=== PATIENT | female | born 1955 | race Caucasian/White ===

== ENCOUNTER 2018-06-20 16:19 | Inpatient (IN) | payer MEDICARE, OTHER ==
[~2018-06-20] VITALS: Ht 165.1 cm; Wt 67.6 kg
--- NOTE | 2018-06-20 16:25 | NUR ---
LEYLA FROM [facility] C/O NAUSEA AND VOMITING SINCE LAST NIGHT. PT IS CURRENTLY NAUSEOUS. NO VOMITTING PRESENT. PT IS ON MONITOR IN BED 11. WILL CONTINUE TO MONITOR.
--- NOTE | 2018-06-20 18:16 | NUR ---
RADIOLOGY AT BEDSIDE FOR XRAY
--- NOTE | 2018-06-20 18:40 | NUR ---
PHLEB AT BEDSIDE
[2018-06-20] MEDS ORDERED: KETOROLAC TROMETHAMINE INJ 30 MG/ML VIAL ONE (18:52)
[2018-06-20 18:53] LABS: BASOPHILS % (AUTO) 0.2 % (0.0-2.0); EOSINOPHILS % (AUTO) 0.1 % (0.0-6.0); HEMATOCRIT 34 % (33-45); HEMOGLOBIN 10.9 g/dL (11.5-14.8); LYMPHOCYTES # (AUTO) 0.6 /CMM (0.8-4.8); LYMPHOCYTES % (AUTO) 8.5 % (20.0-44.0); MEAN CORPUSCULAR HGB CONC 32 g/dl (31.0-36.0); MEAN CORPUSCULAR VOLUME 90 fL (82-100); MONOCYTES # (AUTO) 0.2 /CMM (0.1-1.30); MONOCYTES % (AUTO) 3.2 % (2.0-12.0); NEUTROPHILS # (AUTO) 6.6 /CMM (1.8-8.9); PLATELET COUNT (AUTO) 266 /CMM (150-450); RED BLOOD CELL COUNT(AUTO) 3.75 MIL/uL (4.0-5.2); WHITE BLOOD COUNT (AUTO) 7.6 K/uL (4.3-11.0)
[2018-06-20] MEDS ORDERED: KETOROLAC TROMETHAMINE INJ 30 MG/ML VIAL IV ONE (19:00)
[2018-06-20 19:02] LABS: CALCIUM, SERUM 8.6 mg/dL (8.5-10.1); CARBON DIOXIDE 23 mmol/L (21-32); CHLORIDE 101 mmol/L (98-107); CREATININE 0.8 mg/dL (0.6-1.3); GLUCOSE 116 mg/dL (74-106); POTASSIUM 3.5 mmol/L (3.5-5.1); SODIUM SERUM 138 mmol/L (136-145); UREA NITROGEN, BLOOD 13 mg/dL (7-18)
--- NOTE | 2018-06-20 19:10 | NUR ---
Pt came in for nausea, abd pain. A, O4 but dozes off to sleep in between conversation. States she is not in pain at this time.
[2018-06-20 19:14] LABS: ALANINE AMINOTRANSFERASE 20 U/L (12-78); ALBUMIN 3.3 g/dL (3.4-5.0); ALKALINE PHOSPHATASE 51 U/L (46-116); ASPARTATE AMINOTRANSFERASE 16 U/L (15-37); B-TYPE NATRIURETIC PEPTIDE 2570 PG/ML (0-125); BILIRUBIN,DIRECT 0.1 mg/dL (0.0-0.2); BILIRUBIN,TOTAL 0.4 mg/dL (0.2-1.0)
--- NOTE | 2018-06-20 19:14 | NUR ---
REPORT GIVEN TO CHU STEPHEN FOR CAREN
[2018-06-20] MEDS ORDERED: FUROSEMIDE 20 MG/2 ML VIAL IV ONE (20:00)
--- NOTE | 2018-06-20 20:10 | NUR ---
CALLED EPIC FOR THIS PATIENT
[2018-06-20] MEDS ORDERED: FUROSEMIDE 20 MG/2 ML VIAL ONE (20:18)
--- NOTE | 2018-06-20 20:58 | NUR ---
ADMIT TO ROOM 316-2 TELE
[2018-06-20] MEDS ORDERED: ALBUTEROL FS 2.5 MG/0.5 ML VIAL.NEB NEB PRN (22:00)
[2018-06-20] MEDS ORDERED: NITROGLYCERIN 0.4 MG/TAB BOTTLE SL PRN (22:00)
[2018-06-20] MEDS ORDERED: MORPHINE SULFATE INJ 2 MG/ML DISP.SYRIN IV PRN (22:00)
[2018-06-20] MEDS ORDERED: HYDROCODONE/APAP 5/325MG 1 EACH TABLET PO PRN (22:00)
[2018-06-20] MEDS ORDERED: MAG HYDROX/AL HYDROX/SIMETH 30 ML UDC PO PRN (22:00)
[2018-06-20] MEDS ORDERED: Z GUARD REMEDY 2 OZ OINT TP PRN (22:00)
[2018-06-20] MEDS ORDERED: ACETAMINOPHEN 325 MG TABLET PO PRN (22:00)
[2018-06-20] MEDS ORDERED: MAGNESIUM HYDROXIDE 30 ML UDC PO PRN (22:00)
[2018-06-20] MEDS ORDERED: IPRATROPIUM NEB FS 0.5 MG/2.5 ML AMPUL.NEB NEB PRN (22:00)
--- NOTE | 2018-06-20 22:35 | NUR ---
Pt resting in bed, c/o abd discomfort .
[2018-06-20 22:38] LABS: APPEARANCE,URINE CLEAR (CLEAR); BILIRUBIN,URINE NEGATIVE (NEGATIVE); BLOOD, URINE NEGATIVE Ery/uL (NEGATIVE); COLOR,URINE YELLOW (YELLOW); KETONES,URINE NEGATIVE (NEGATIVE); LEUKOCYTE ESTERASE ,URINE NEGATIVE (NEGATIVE); NITRITE, URINE NEGATIVE (NEGATIVE); PH,URINE 5.5 (5.0-8.0); PROTEIN,URINE NEGATIVE (NEGATIVE); UGLUCOSE NEGATIVE (NEGATIVE); UROBILINOGEN,URINE 0.2 EU/dL (0.2)
--- NOTE | 2018-06-20 22:44 | NUR ---
Pt will be admitted to [facility] 316. Report given to CHU Fisher.
[2018-06-20 23:00] VITALS: BP 129/67
--- NOTE | 2018-06-20 23:15 | NUR ---
STEAM ENGINEER ADMITTING NOTES RECEIVED PT FROM ER VIA [facility], PT ALERT/ORIENTED X4, BREATHING EVEN AND UNLABORED ON 4L VIA NC. SLIGHT GAIT WEAKNESS WHEN WALKING TO HOSPITAL BED, ABLE TO WALK TO THE BATHROOM WITHOUT ASSIST. PICC LINE ON THE RIGHT UPPER ARM, DRESSING CLEAN AND DRY. ALL SKIN CONDITIONS PICTURED AND DOCUMENTED IN CHART. COMPLAINT OF ABDOMINAL PAIN AND NAUSEA, WILL ADMINISTER ANALGESICS AND ZOFRAN. BED IN LOWEST LOCKED POSITION, CALL LIGHT WITHIN REACH AT ALL TIMES. WILL CONTINUE TO MONITOR
[2018-06-20] MEDS ORDERED: ASCO500T9 PO (23:27)
[2018-06-20] MEDS ORDERED: BISA5TAB10 PO (23:27)
[2018-06-20] MEDS ORDERED: AMLO10TA6 PO (23:27)
[2018-06-20] MEDS ORDERED: ALPR0.255 PO (23:27)
[2018-06-20] MEDS ORDERED: DIAZ5TAB4 PO (23:27)
[2018-06-20] MEDS ORDERED: FERR325T23 PO (23:35)
[2018-06-20] MEDS ORDERED: PANT40TA4 PO (23:35)
[2018-06-20] MEDS ORDERED: MEGE400O4 PO (23:35)
[2018-06-20] MEDS ORDERED: MORP30TA59 PO (23:35)
[2018-06-20] MEDS ORDERED: IPRA3AMP22 IH (23:35)
[2018-06-20] MEDS ORDERED: HYDR4TAB4 PO (23:35)
[2018-06-20] MEDS ORDERED: METO-357 PO (23:35)
[2018-06-20] MEDS ORDERED: HYDR-4077 PO (23:35)
[2018-06-20] MEDS ORDERED: GABA-534 PO (23:35)
[2018-06-20] MEDS ORDERED: OXYC-128 PO (23:35)
[2018-06-20] MEDS ORDERED: TEMA30CA PO (23:35)
[2018-06-20] MEDS ORDERED: ONDA4SOL2 IV (23:35)
[2018-06-20] MEDS: ONDANSETRON HCL/PF 4 MG/2 ML VIAL IVP PRN (23:36)
[2018-06-21] MEDS: MORPHINE SULFATE INJ 4 MG/ML DISP.SYRIN IV PRN ×3 (00:32→08:41)
[2018-06-21 04:00] VITALS: BP 135/67
[2018-06-21] MEDS: ONDANSETRON HCL/PF 4 MG/2 ML VIAL IVP PRN (05:11)
--- NOTE | 2018-06-21 06:15 | NUR ---
PT REMAINS IN BED, AWAKE, A/OX4, VERBALLY RESPONSIVE AND ABLE TO MAKE NEEDS KNOWN. BREATHING EVEN AND UNLABORED ON O2 4L NC. NO PAIN OR DISCOMFORT AT THE MOMENT, MORPHINE 2MG ADMINISTERED AT 0430. 1 EPISODE OF VOMITING, ZOFRAN 4MG ADMINISTERED WELL. PICC LINE ON THE RIGHT UPPER ARM, PATENT AND FLUSHIGN, DRESSING DRY AND INTACT. BED IN LOWEST LOCKED POSITION, CALL LIGHT WITHIN REACH AT ALL TIMES, WILL ENDORSE TO DAY NURSE FOR CAREN.
[2018-06-21] MEDS: LORAZEPAM 1 MG TABLET PO PRN ×3 (06:26→22:38)
[2018-06-21 08:00] VITALS: BP 167/81
[2018-06-21 08:06] LABS: BASOPHILS % (AUTO) 0.4 % (0.0-2.0); EOSINOPHILS % (AUTO) 2.2 % (0.0-6.0); HEMATOCRIT 32 % (33-45); HEMOGLOBIN 10.6 g/dL (11.5-14.8); LYMPHOCYTES # (AUTO) 1.1 /CMM (0.8-4.8); LYMPHOCYTES % (AUTO) 17.8 % (20.0-44.0); MEAN CORPUSCULAR HGB CONC 33 g/dl (31.0-36.0); MEAN CORPUSCULAR VOLUME 90 fL (82-100); MONOCYTES # (AUTO) 0.4 /CMM (0.1-1.30); MONOCYTES % (AUTO) 7.1 % (2.0-12.0); NEUTROPHILS # (AUTO) 4.3 /CMM (1.8-8.9); NEUTROPHILS % (AUTO) 72.5 % (43.0-81.0); PLATELET COUNT (AUTO) 274 /CMM (150-450); RED BLOOD CELL COUNT(AUTO) 3.61 MIL/uL (4.0-5.2)
[2018-06-21 08:25] LABS: ALBUMIN 3.3 g/dL (3.4-5.0); BILIRUBIN,TOTAL 0.3 mg/dL (0.2-1.0); CALCIUM, SERUM 8.3 mg/dL (8.5-10.1); CREATININE 0.9 mg/dL (0.6-1.3); MAGNESIUM 1.6 mg/dL (1.8-2.4); PHOSPHORUS 2.9 mg/dL (2.5-4.9); POTASSIUM 3.5 mmol/L (3.5-5.1)
[2018-06-21] MEDS: PANTOPRAZOLE 40 MG TABLET.DR PO SCH (08:26)
[2018-06-21] MEDS: POTASSIUM CHLORIDE 20 MEQ TAB.PRT.SR PO SCH ×3 (08:26→10:44)
[2018-06-21] MEDS: FUROSEMIDE 40 MG/4 ML VIAL IV SCH ×3 (08:26→16:16)
[2018-06-21] MEDS: METOPROLOL SUCCINATE 50 MG TAB.SR.24H PO SCH (08:31)
[2018-06-21] MEDS: GABAPENTIN 300 MG CAPSULE PO SCH ×3 (08:31→16:17)
[2018-06-21] MEDS: hydrALAZINE HCL 50 MG TABLET PO SCH ×3 (08:32→16:17)
[2018-06-21] MEDS: ASCORBIC ACID 500 MG TABLET PO SCH (08:32)
[2018-06-21] MEDS: ALPRAZOLAM 0.25 MG TABLET PO SCH ×3 (08:32→16:17)
[2018-06-21] MEDS: AMLODIPINE BESYLATE 10 MG TABLET PO SCH (08:32)
[2018-06-21] MEDS: FERROUS SULFATE (325 MG) 325 MG/TAB TABLET PO SCH ×2 (08:33→16:17)
[2018-06-21] MEDS: MEGESTROL ACETATE SUSP 400 MG/10 ML UDC PO SCH (08:35)
[2018-06-21] MEDS: BISACODYL (5 MG) 5 MG TABLET.DR PO SCH ×3 (08:35→21:09)
--- NOTE | 2018-06-21 08:35 | NUR ---
RAILWAY SIGNAL TECHNICIAN NOTES Patient is sitting up in bed, poor appetite. Sinus rhythm with PVC in the tele monitor. On low flow oxygen, sat 97%, denies shortness of breath. Left upper chest open wound, dressing changed, awaits wound consult today. Patient reported dilaudid IV was more effective in her back pain than morphine IV, will follow up. Maintained safety, will cont to monitor.
[2018-06-21] MEDS ORDERED: FUROSEMIDE 20 MG/2 ML VIAL IV SCH (09:00)
[2018-06-21 09:40] LABS: THYROID STIMULATING HORMONE 3.218 uIU/mL (0.358-3.74)
[2018-06-21] MEDS: Magnesium 1GM/D5W 100ML PREMIX 100 ML IV SCH ×2 (11:31→12:48)
[2018-06-21] MEDS: HYDROMORPHONE 1 MG/1 ML DISP.SYRIN IV PRN ×3 (14:24→22:38)
[2018-06-21] MEDS ORDERED: VANCOMYCIN 1 GM in IV NS 0.9% 250 ML IV STA (15:56)
[2018-06-21 16:00] VITALS: BP 113/78
[2018-06-21] MEDS ORDERED: FEE PK DOSING 1 MIN EA MC ONE (16:36)
--- NOTE | 2018-06-21 18:15 | NUR ---
MS RN CLOSING NOTES Patient ambulates independently, poor appetite, encouraged PO fluids. On low flow oxygen at 2L/min via NC, sat 96%, denies shortness of breath. ALONSO PICC line patent and intact, on vancomycin for osteomyelitis. Low Magnesium supplemented today, 2gm IV. Wound consulted, wound treatment started. Back pain managed by PRN IV Dilaudid. Refused PT today. Maintained safety, plan D/C back to SNF. Will endorse to oncoming RN.
[2018-06-21] MEDS: DAKINS QUARTER STRENGTH (0.125%) 480 ML BOTTLE TOP SCH (18:19)
[2018-06-21] MEDS: NYSTATIN/TRIAMCIN CREAM 15 GM TUBE TP SCH (18:19)
[2018-06-21] MEDS: NYSTATIN TOP POWDER 15 GM BOTTLE TP SCH (18:57)
[2018-06-21] MEDS: VANCOMYCIN 1 GM in IV D5W 250 ML IV SCH (18:58)
[2018-06-21 20:00] VITALS: BP 112/71
[2018-06-21] MEDS: ZOLPIDEM TARTRATE 5 MG TABLET PO PRN (23:04)
[2018-06-22] MEDS: HYDROMORPHONE 1 MG/1 ML DISP.SYRIN IV PRN ×5 (03:36→21:00)
[2018-06-22] MEDS: VANCOMYCIN 1 GM in IV D5W 250 ML IV SCH ×2 (05:40→16:47)
[2018-06-22] MEDS: NYSTATIN/TRIAMCIN CREAM 15 GM TUBE TP SCH ×2 (05:41→16:50)
[2018-06-22] MEDS: NYSTATIN TOP POWDER 15 GM BOTTLE TP SCH ×2 (05:41→16:50)
[2018-06-22 06:34] LABS: BASOPHILS % (AUTO) 0.3 % (0.0-2.0); EOSINOPHILS % (AUTO) 4.7 % (0.0-6.0); HEMATOCRIT 32 % (33-45); HEMOGLOBIN 10.5 g/dL (11.5-14.8); LYMPHOCYTES # (AUTO) 1.9 /CMM (0.8-4.8); LYMPHOCYTES % (AUTO) 32.6 % (20.0-44.0); MEAN CORPUSCULAR HGB CONC 33 g/dl (31.0-36.0); MEAN CORPUSCULAR VOLUME 90 fL (82-100); MONOCYTES # (AUTO) 0.8 /CMM (0.1-1.30); MONOCYTES % (AUTO) 13.7 % (2.0-12.0); NEUTROPHILS # (AUTO) 2.8 /CMM (1.8-8.9); NEUTROPHILS % (AUTO) 48.7 % (43.0-81.0); PLATELET COUNT (AUTO) 286 /CMM (150-450); RED BLOOD CELL COUNT(AUTO) 3.54 MIL/uL (4.0-5.2); WHITE BLOOD COUNT (AUTO) 5.8 K/uL (4.3-11.0)
--- NOTE | 2018-06-22 06:40 | NUR ---
MS RN NOTES AWAKE & RESPONSIVE. NOT IN ANY DISTRESS. NO SOB NOTED. DENIES ANY PAIN OR DISCOMFORT AT THIS TIME. WITH IVF INFUSING WELL. MONITORED ACCORDINGLY. CALL LIGHT WITHIN REACH. BED IN LOWEST POSITION. SR UP X2 FOR SAFETY. WILL ENDORSE TO NEXT SHIFT.
[2018-06-22 06:50] LABS: ALANINE AMINOTRANSFERASE 23 U/L (12-78); ALBUMIN 3.5 g/dL (3.4-5.0); ALKALINE PHOSPHATASE 52 U/L (46-116); ASPARTATE AMINOTRANSFERASE 15 U/L (15-37); BILIRUBIN,TOTAL 0.3 mg/dL (0.2-1.0); CALCIUM, SERUM 8.7 mg/dL (8.5-10.1); CARBON DIOXIDE 29 mmol/L (21-32); CHLORIDE 98 mmol/L (98-107); GLUCOSE 91 mg/dL (74-106); MAGNESIUM 2.3 mg/dL (1.8-2.4); PHOSPHORUS 2.7 mg/dL (2.5-4.9); SODIUM SERUM 135 mmol/L (136-145); TOTAL PROTEIN, SERUM 7.1 g/dL (6.4-8.2); UREA NITROGEN, BLOOD 19 mg/dL (7-18)
[2018-06-22] MEDS: PANTOPRAZOLE 40 MG TABLET.DR PO SCH (07:49)
[2018-06-22 08:00] VITALS: BP 123/54
--- NOTE | 2018-06-22 08:00 | NUR ---
WOUND CARE CONSULT WOUND CARE RECEIVED CONSULT FOR RIGHT CHEST WOUND PREVIOUSLY UNDER MRSA CONTACT ISOLATION. WOUND CARE WILL DEFER CONSULT AND ALL TREATMENT PLANS TO PLASTIC SURGICAL TEAM THEY ARE CURRENTLY FOLLOWING. PATIENT WITH [facility] AT 19. WILL SEE PRN.
[2018-06-22] MEDS: MEGESTROL ACETATE SUSP 400 MG/10 ML UDC PO SCH (08:20)
[2018-06-22] MEDS: hydrALAZINE HCL 50 MG TABLET PO SCH ×3 (08:21→16:54)
[2018-06-22] MEDS: FERROUS SULFATE (325 MG) 325 MG/TAB TABLET PO SCH ×2 (08:21→16:53)
[2018-06-22] MEDS: ASCORBIC ACID 500 MG TABLET PO SCH (08:21)
[2018-06-22] MEDS: GABAPENTIN 300 MG CAPSULE PO SCH ×3 (08:22→16:54)
[2018-06-22] MEDS: ALPRAZOLAM 0.25 MG TABLET PO SCH ×3 (08:23→16:53)
[2018-06-22] MEDS: AMLODIPINE BESYLATE 10 MG TABLET PO SCH (08:23)
[2018-06-22] MEDS: METOPROLOL SUCCINATE 50 MG TAB.SR.24H PO SCH (08:23)
[2018-06-22] MEDS: BISACODYL (5 MG) 5 MG TABLET.DR PO SCH ×2 (08:24→20:42)
--- NOTE | 2018-06-22 08:25 | NUR ---
MS RN NOTES Patient is sitting up in bed, had breakfast with fair appetite. Stable in RA, oxygen sat 93%, denies shortness of breath. ALONSO PICC patent and intact, complaint of back pain medicated by PRN IV dilaudid with relief. Maintained safety, will cont to monitor.
[2018-06-22] MEDS: ONDANSETRON HCL/PF 4 MG/2 ML VIAL IVP PRN (11:02)
[2018-06-22] MEDS: DAKINS QUARTER STRENGTH (0.125%) 480 ML BOTTLE TOP SCH (11:02)
[2018-06-22 16:00] VITALS: BP 147/64
[2018-06-22] MEDS: LORAZEPAM 1 MG TABLET PO PRN (17:06)
--- NOTE | 2018-06-22 18:19 | NUR ---
MS RN CLOSING NOTES Patient ambulates independently. Stable in RA, oxygen sat 93%, denies shortness of breath. ALONSO PICC line patent and intact, on vancomycin for osteomyelitis. Biopsy of multiple skin lesions today, patient consented procedure. Upper and low back pain managed by PRN IV Dilaudid, pain is controlled. Ambulates 150ft with PT today. Maintained safety, plan D/C back to SNF. Will endorse to oncoming RN.
[2018-06-22 20:00] VITALS: BP 114/51
[2018-06-22] MEDS: ZOLPIDEM TARTRATE 5 MG TABLET PO PRN (22:13)
[2018-06-23] MEDS: HYDROMORPHONE 1 MG/1 ML DISP.SYRIN IV PRN ×6 (01:06→21:18)
[2018-06-23 04:50] LABS: BASOPHILS # (AUTO) 0.1 /CMM (0.0-0.2); BASOPHILS % (AUTO) 0.9 % (0.0-2.0); EOSINOPHILS % (AUTO) 4.3 % (0.0-6.0); HEMATOCRIT 32 % (33-45); HEMOGLOBIN 10.4 g/dL (11.5-14.8); LYMPHOCYTES # (AUTO) 1.9 /CMM (0.8-4.8); LYMPHOCYTES % (AUTO) 30.5 % (20.0-44.0); MEAN CORPUSCULAR HGB CONC 33 g/dl (31.0-36.0); MEAN CORPUSCULAR VOLUME 90 fL (82-100); MONOCYTES # (AUTO) 0.7 /CMM (0.1-1.30); MONOCYTES % (AUTO) 11.7 % (2.0-12.0); NEUTROPHILS # (AUTO) 3.3 /CMM (1.8-8.9); NEUTROPHILS % (AUTO) 52.6 % (43.0-81.0); PLATELET COUNT (AUTO) 287 /CMM (150-450); RED BLOOD CELL COUNT(AUTO) 3.54 MIL/uL (4.0-5.2); WHITE BLOOD COUNT (AUTO) 6.3 K/uL (4.3-11.0)
[2018-06-23] MEDS: NYSTATIN TOP POWDER 15 GM BOTTLE TP SCH ×2 (04:58→16:35)
[2018-06-23] MEDS: NYSTATIN/TRIAMCIN CREAM 15 GM TUBE TP SCH ×2 (04:58→16:35)
[2018-06-23 05:05] LABS: CALCIUM, SERUM 8.5 mg/dL (8.5-10.1); CREATININE 0.9 mg/dL (0.6-1.3); POTASSIUM 3.9 mmol/L (3.5-5.1)
[2018-06-23] MEDS: VANCOMYCIN 1 GM in IV D5W 250 ML IV SCH ×2 (06:11→16:37)
--- NOTE | 2018-06-23 06:32 | NUR ---
MS RN NOTES AWAKE & RESPONSIVE. NOT IN ANY DISTRESS. NO SOB NOTED. DENIES ANY PAIN OR DISCOMFORT AT THIS TIME. WITH PICC LINE PATENT & INTACT. MONITORED ACCORDINGLY. CALL LIGHT WITHIN REACH. BED IN LOWEST POSITION. SR UP X2 FOR SAFETY. WILL ENDORSE TO NEXT SHIFT.
[2018-06-23] MEDS: PANTOPRAZOLE 40 MG TABLET.DR PO SCH (07:44)
--- NOTE | 2018-06-23 07:54 | NUR ---
MS RN OPENING NOTES RECEIVED PATIENT AWAKE IN BED. NO SIGNS OF RESPIRATORY DISTRESS NOTED. ALERT ORIENTED X 4 CALL LIGHT WITHIN REACH. VERBALLY RESPONSIVE NO SIGNS OF PAIN AND DISCOMFORT. ON ROOM AIR, BREATHING EVEN AND UNLABORED. PICC LINE ON HER RIGHT UPPER ARM INTACT AND PATENT. SAFETY MEASURES IN PLACE BED IN LOW LOCK POSITION SIDE RAILS UP X 3. WILL CONTINUE TO MONITOR PATIENT ACCORDINGLY.
[2018-06-23 08:07] VITALS: BP 150/64
[2018-06-23] MEDS: ALPRAZOLAM 0.25 MG TABLET PO SCH ×3 (08:14→17:46)
[2018-06-23] MEDS: ASCORBIC ACID 500 MG TABLET PO SCH (08:14)
[2018-06-23] MEDS: FERROUS SULFATE (325 MG) 325 MG/TAB TABLET PO SCH ×2 (08:15→16:37)
[2018-06-23] MEDS: GABAPENTIN 300 MG CAPSULE PO SCH ×3 (08:15→16:37)
[2018-06-23] MEDS: BISACODYL (5 MG) 5 MG TABLET.DR PO SCH ×2 (08:15→21:06)
[2018-06-23] MEDS: AMLODIPINE BESYLATE 10 MG TABLET PO SCH (08:15)
[2018-06-23] MEDS: DAKINS QUARTER STRENGTH (0.125%) 480 ML BOTTLE TOP SCH (08:16)
[2018-06-23] MEDS: MEGESTROL ACETATE SUSP 400 MG/10 ML UDC PO SCH (08:19)
[2018-06-23] MEDS: METOPROLOL SUCCINATE 50 MG TAB.SR.24H PO SCH (08:19)
[2018-06-23] MEDS: hydrALAZINE HCL 50 MG TABLET PO SCH ×3 (08:21→16:36)
--- NOTE | 2018-06-23 10:16 | NUR ---
RN NOTES PATIENT COMPLAINT OF HEADACHE, ACETAMINOPHEN 650 MG TAB/PO GIVEN ORDERED.
--- NOTE | 2018-06-23 10:21 | NUR ---
RN NOTES PATIENT COMPLAINED OF MILD HEADACHE, PRN TYLENOL 650MG PO GIVEN AT 1016. WILL CONTINUE TO MONITOR
[2018-06-23 16:06] VITALS: BP 122/66
[2018-06-23] MEDS: LORAZEPAM 1 MG TABLET PO PRN (16:37)
--- NOTE | 2018-06-23 17:15 | NUR ---
RN NOTES/PAIN MANAGEMENT PATIENT COMPLAINED OF PAIN ON HER LEFT UPPER CHEST WALL WOUND WITH SCALE OF 8/10, PRN DILAUDID 1MG IVP ADMINISTERED AT 1713. WILL CONTINUE TO MONITOR AND REASSESS.
--- NOTE | 2018-06-23 18:38 | NUR ---
CLOSING RN NOTES PATIENT AWAKE IN BED. NO SIGNS OF RESPIRATORY DISTRESS NOTED. ALERT ORIENTED X 4 CALL LIGHT WITHIN REACH. VERBALLY RESPONSIVE NO SIGNS OF PAIN AND DISCOMFORT. ON ROOM AIR, BREATHING EVEN AND UNLABORED. PICC LINE ON HER RIGHT UPPER ARM INTACT AND PATENT. SAFETY MEASURES IN PLACE BED IN LOW LOCK POSITION SIDE RAILS UP X 3. WILL CONTINUE TO MONITOR PATIENT ACCORDINGLY. ALL NEEDS ATTENDED. KEPT CLEAN, DRY AND COMFORTABLE. ABLE TO CONSUMED FOOD TRAY. WILL ENDORSE TO CLINIC SPECIALIST NURSE FOR CONT. CARE AND MANAGEMENT.
--- NOTE | 2018-06-23 19:15 | NUR ---
RN OPENING: RECEIVED ENDORSEMENT,PATIENT LYING COMFORTABLY IN BED, SEMI FOWLERS POSITION, A/OX4, ROOM AIR SPO2-93%, WITH IVF OF NS AT 100 ML/HR ONGOING,PICC ALONSO PATENT,CONTINENT BOTH BOWEL AND BLADDER WITH BRP,FALL,SAFETY AND ASPIRATION PRECAUTION OBSERVED, BED LOW AND LOCKED, CALL LIGHT WITHIN EASY REACH,PATIENT IS NOT IN PAIN, NO DISCOMFORT NOTED NO SIGN OF SOB, KEPT ON CLOSE WATCH.
[2018-06-23 20:00] VITALS: BP 130/66
--- NOTE | 2018-06-23 21:20 | NUR ---
RN NOTES: 2118 COMPLAINED OF GENERALIZED PAIN 03/03, NON PHARMACOLOGIC INTERVENTION IS INEFFECTIVE, REQUEST FOR PAIN MEDICATION BP-130/66, DILAUDID GIVEN, ROOM KEPT DIM LIGHT, CALL LIGHT WITHIN EASY REACH.
[2018-06-23] MEDS: ZOLPIDEM TARTRATE 5 MG TABLET PO PRN (22:46)
--- NOTE | 2018-06-23 22:46 | NUR ---
RN NOTES: UNABLE TO SLEEP, REQUEST FOR HER AMBIEN, KEPT COMFORTABLE IN BED, GIVEN SPRITE SHE SAID "I WANT TO BURP" AFTER SHE DRINK IT SHE FELT BETTER, KEEP RESTED, CALL LIGHT WITHIN EASY REACH.
[2018-06-24] MEDS: HYDROMORPHONE 1 MG/1 ML DISP.SYRIN IV PRN ×4 (01:33→14:35)
--- NOTE | 2018-06-24 01:33 | NUR ---
RN NOTES: UPON SHE WAKE UP, ASSISTED TO BATHROOM WHEN SHE RETURNED BACK IN HER BED, COMPLAINED OF PAIN 9/10 OH HER ENTIRE BODY, REQUEST FOR HER PAIN MEDICATION, NON PHARMACOLOGIC INTERVENTION IS RENDERED.
[2018-06-24] MEDS: NYSTATIN TOP POWDER 15 GM BOTTLE TP SCH ×2 (04:27→15:59)
[2018-06-24] MEDS: NYSTATIN/TRIAMCIN CREAM 15 GM TUBE TP SCH ×2 (04:32→16:00)
[2018-06-24] MEDS: VANCOMYCIN 1 GM in IV D5W 250 ML IV SCH ×2 (04:47→17:06)
--- NOTE | 2018-06-24 05:51 | NUR ---
RN NOTES: ABLE TO SLEEP AT SHORT INTERVALS, COMPLAINED OF PAIN AFTER SHE WAKE UP AND WENT TO THE BATHROOM,REQUEST FOR HIS PAIN MEDICATION 04/03 FOR GENERALIZED PAIN,NON PHARMACOLOGIC INTERVENTION RENDERED, OFFERED WARM BLANKET AND PLAY SOFT MUSIC TO KEEP HER CALM.
--- NOTE | 2018-06-24 07:46 | NUR ---
MS RN NOTES PATIENT RECEIVED RESTING INSIDE ROOM. AWAKE, ALERT AND ORIENTED X 4, VERBALLY RESPONSIVE AND RESPONDS TO VERBAL AND TACTILE STIMULI. BREATHING EVEN AND UNLABORED. NO ACUTE DISTRESS NOTED AT THIS TIME. DENIES ANY PAIN OR DISCOMFORT. PICCLINE IN PLACE ON ALONSO, DRESSING INTACT, NO DRAINAGE/SOILAGE NOTED. WILL CONTINUE TO MONITOR. BED LOCKED AND IN LOW POSITION. BILATERAL UPPER SIDE RAILS UP AND LOCKED. CALL LIGHT WITHIN EASY REACH
[2018-06-24 08:00] VITALS: BP 155/84
[2018-06-24] MEDS: MEGESTROL ACETATE SUSP 400 MG/10 ML UDC PO SCH (08:08)
[2018-06-24] MEDS: ASCORBIC ACID 500 MG TABLET PO SCH (08:09)
[2018-06-24] MEDS: PANTOPRAZOLE 40 MG TABLET.DR PO SCH (08:09)
[2018-06-24] MEDS: METOPROLOL SUCCINATE 50 MG TAB.SR.24H PO SCH (08:09)
[2018-06-24] MEDS: hydrALAZINE HCL 50 MG TABLET PO SCH ×3 (08:10→16:08)
[2018-06-24] MEDS: BISACODYL (5 MG) 5 MG TABLET.DR PO SCH (08:10)
[2018-06-24] MEDS: ALPRAZOLAM 0.25 MG TABLET PO SCH ×3 (08:10→16:08)
[2018-06-24] MEDS: FERROUS SULFATE (325 MG) 325 MG/TAB TABLET PO SCH ×2 (08:10→16:08)
[2018-06-24] MEDS: GABAPENTIN 300 MG CAPSULE PO SCH ×3 (08:10→16:08)
[2018-06-24] MEDS: DAKINS QUARTER STRENGTH (0.125%) 480 ML BOTTLE TOP SCH (08:10)
[2018-06-24] MEDS: AMLODIPINE BESYLATE 10 MG TABLET PO SCH (08:10)
[2018-06-24 08:14] LABS: CALCIUM, SERUM 8.8 mg/dL (8.5-10.1); CREATININE 0.9 mg/dL (0.6-1.3); MAGNESIUM 1.9 mg/dL (1.8-2.4); PHOSPHORUS 3.3 mg/dL (2.5-4.9); POTASSIUM 3.9 mmol/L (3.5-5.1)
[2018-06-24 08:40] LABS: BASOPHILS # (AUTO) 0.1 /CMM (0.0-0.2); BASOPHILS % (AUTO) 0.7 % (0.0-2.0); EOSINOPHILS % (AUTO) 3.2 % (0.0-6.0); HEMATOCRIT 33 % (33-45); HEMOGLOBIN 10.7 g/dL (11.5-14.8); LYMPHOCYTES # (AUTO) 2.8 /CMM (0.8-4.8); LYMPHOCYTES % (AUTO) 36.3 % (20.0-44.0); MEAN CORPUSCULAR HGB CONC 33 g/dl (31.0-36.0); MEAN CORPUSCULAR VOLUME 89 fL (82-100); MONOCYTES # (AUTO) 0.8 /CMM (0.1-1.30); MONOCYTES % (AUTO) 10.7 % (2.0-12.0); NEUTROPHILS # (AUTO) 3.7 /CMM (1.8-8.9); NEUTROPHILS % (AUTO) 49.1 % (43.0-81.0); PLATELET COUNT (AUTO) 327 /CMM (150-450); WHITE BLOOD COUNT (AUTO) 7.6 K/uL (4.3-11.0)
[2018-06-24 16:00] VITALS: BP 120/66
[2018-06-24] MEDS ORDERED: SULF1TAB48 PO (16:03)
[2018-06-24] MEDS ORDERED: SODI473S8 TOP (16:03)
[2018-06-24] MEDS ORDERED: CEPH-570 PO (16:03)
[2018-06-24 16:08] VITALS: BP 120/66
--- NOTE | 2018-06-24 17:20 | NUR ---
MS RN NOTES PATIENT FOR DISCHARGE BACK TO [facility] (TEL: [phone]). PLACED CALL AND GIVEN REPORT TO RANDI SAGE. PATIENT AWARE AND VERBALIZED UNDERSTANDING
--- NOTE | 2018-06-24 18:47 | NUR ---
MS RN NOTES PATIENT FOR DISCHARGE TODAY BACK TO [facility]. DISCHARGE INSTRUCTIONS AND EDUCATION GIVEN AND VERBALIZED UNDERSTANDING. PICCLINE IN PLACE ON ALONSO, DRESSING INTACT AND IN PLACE. ALL BELONGINGS COMPLETE ON DISCHARGE, NO REPORT OF MISSING INVENTORY. NO NEW SKIN BREAKDOWN NOTED. PICTURES TAKEN AND FILED. PATIENT LEFT UNIT AT 1845 VIA [employer]. LEFT IN STABLE CONDITION. MD MADE AWARE OF DISCHARGE
== END 2018-06-24 18:50 | DRG 539 ==
LOC: ER 16:21 → TELE 21:06 → MED 06-21 09:39
PROVIDERS: ADMIT Nurse Practitioner Acute Care; ATTEND Nurse Practitioner Acute Care
PROC: 0HB6XZX Excision of Back Skin, External Approach, Diagnostic (ICD-10-PCS; principal; 2018-06-22)
PROC: 0HBDXZX Excision of Right Lower Arm Skin, External Approach, Diagnostic (ICD-10-PCS; 2018-06-22)
PROC: 0HB5XZX Excision of Chest Skin, External Approach, Diagnostic (ICD-10-PCS; 2018-06-22)
PROC: 0HBUXZX (ICD-10-PCS; 2018-06-22)
DX: M86.9 Osteomyelitis, unspecified (principal); I50.33 Acute on chronic diastolic (congestive) heart failure; E44.1 Mild protein-calorie malnutrition; I11.0 Hypertensive heart disease with heart failure; D63.8 Anemia in other chronic diseases classified elsewhere; J44.9 Chronic obstructive pulmonary disease, unspecified; S41.002A Unspecified open wound of left shoulder, initial encounter; L30.4 Erythema intertrigo; Z86.14 Personal history of Methicillin resistant Staphylococcus aureus infection; Z85.828 Personal history of other malignant neoplasm of skin; Z68.28 Body mass index [BMI] 28.0-28.9, adult; K21.9 Gastro-esophageal reflux disease without esophagitis; E86.0 Dehydration; E78.5 Hyperlipidemia, unspecified; R26.81 Unsteadiness on feet; G62.9 Polyneuropathy, unspecified
CPT/HCPCS: 36415; 71045-TC; 71250-TC; 80048-TC; 80053-TC; 80061-TC; 80076-TC; 80202-TC; 81000-TC; 82728-TC; 83540-TC; 83690-TC; 83735-TC; 83880; 84100-TC; 84439-TC; 84443-TC; 84484-TC; 85025-TC; 87081-TC; 88305-TC; 93307-TC; 97110-TC; 97116-TC; 97530-TC; A4606; A6253; A6402; A6403; G0378; J1170; J1885; J1940; J2270; J2405; J3370; J3475; J7050; J7060; Z7610